=== PATIENT | female | born 1985 | race Native Hawaiian/Other Pacific Islander ===

== ENCOUNTER 2016-08-11 18:21 | Emergency (ER) | payer MEDICAID ==
--- NOTE | 2016-08-22 08:28 | OBPN ---
Datetime: 08/12/2016 19:54 IP Progress Note Comment: Late entry Tracing had been reviewed 08/11/16 1940 hours - baseline 130 bpm; (+) moderate variability; (+) accels; (-) decels - F.S. 77 mg/dL Assessment: 31 yo P2, prev C/S x 2; A1 GDM. NST reactive. F.S. wnl. Clinically stable. Plan: 1) cont to monitor F.S. as instructed 2) NST weekly 3) reviewed S/S labor 4) Keep appointments 5) Discharge home - This was discussed with Dr. Alex Datetime: 08/11/2016 18:52 Contraction Comments Provider: none FHR - Baseline A Provider: 120 Vital Signs Provider: Reviewed NICHD Accel Fetus A IP Provider: 15X15 FHR Category Provider Fetus A: Category I NICHD Variability Prov Fetus A: Moderate 6-25bpm
== END 2016-08-11 20:00 | disposition home or self-care (01) ==
LOC: C.EROB 18:21
DX: O36.5930 Maternal care for other known or suspected poor fetal growth, third trimester, not applicable or unspecified (principal); Z3A.37 37 weeks gestation of pregnancy

== ENCOUNTER 2016-08-22 08:29 | Inpatient (IN) | payer MEDICAID ==
[2016-08-22 09:21] VITALS: BMI 26.5
[2016-08-22 09:37] LABS: HEMATOCRIT 38.8 % (34.0-47.0); MEAN CELL VOLUME 93.6 fL (81.0-99.0); MEAN CORPUSCULAR HEMOGLOBIN 31.9 pg (27.0-31.0); MEAN CORPUSCULAR HGB CONC 34.1 g/dL (33.0-37.0); MEAN PLATELET VOLUME 10.2 fL (7.2-11.7); RED CELL DISTRIBUTION WIDTH 14.3 % (11.5-14.5); WHITE BLOOD COUNT 9.8 K/uL (4.8-10.8)
[2016-08-22 10:04] LABS: URINE BILIRUBIN NEGATIVE (NEGATIVE); URINE BLOOD NEGATIVE (NEGATIVE); URINE COLOR Yellow (YELLOW); URINE GLUCOSE (UA) NORMAL (Normal); URINE KETONE NEGATIVE (NEGATIVE); URINE LEUKOCYTE ESTERASE NEG Leu/uL (Negative); URINE PROTEIN 1+ mg/dL (NEGATIVE); URINE UROBILINOGEN NORMAL mg/dL (0.2-1.0); WBC URINE 3 /hpf (0-5)
[2016-08-22 10:07] LABS: CHLORIDE 102 mmol/L (98-107); POTASSIUM 3.6 mmol/L (3.6-5.2); SODIUM 135 mmol/L (132-148)
[2016-08-22 10:09] LABS: AST/SGOT 17 U/L (14-36); BILIRUBIN,TOTAL 0.9 mg/dL (0.2-1.3); CARBON DIOXIDE 20 mmol/L (22-30); GFR AFRICAN-AMERICAN > 60; TOTAL PROTEIN 6.6 g/dL (6.3-8.3)
[2016-08-22] MEDS ORDERED: cefOXitin IV 2 gm in Dextrose 2 GM/50 ML BAG IVPB ONE ×2 (10:09→11:14)
[2016-08-22] MEDS ORDERED: Sodium Citrate/Citric Acid 15 ml Sol ONE (10:09)
[2016-08-22 10:10] LABS: ALKALINE PHOSPHATASE 118 U/L (38-126); ALT/SGPT 21 U/L (9-52); BLOOD UREA NITROGEN 7 mg/dL (7-17); GLUCOSE,RANDOM 77 mg/dL (65-105)
[2016-08-22] MEDS ORDERED: ePHEDrine 50 mg/ml Inj ONE (10:43)
[2016-08-22] MEDS ORDERED: Phenylephrine 10 mg/ml Inj ONE (10:43)
[2016-08-22] MEDS ORDERED: Morphine 1 mg/ml preservative-free Inj(Duramorph) ONE (10:43)
--- NOTE | 2016-08-22 11:02 | OBHP ---
Datetime: 08/22/2016 08:32 IP Adm Impression: Term, intrauterine ; Active labor IP Adm Impression Other: Previous Section X2 IP Admit Plan: Admit to unit; Initiate Section protocol Admit Comment, IP Provider: with IUP at 39wks presents here today for a repeat Section . 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 Pt of Dr Alex. Pt was GDMA. TOCO- Q 3-5, FHR- Category 1, Cx- 0/0/-3 Assessment: IUP at 39wks Previous Section X2. Plan as per Dr Alex: Admit Patient. NPO Prepare for repeat Delivery. Pelvic Type - PN: Adequate Extremities - PN: Normal Abdomen - PN: Normal Back - PN: Normal Breast - PN: Normal Lungs - PN: Normal Heart - PN: Normal Thyroid - PN: Normal Neurologic - PN: Normal HEENT - PN: Normal General - PN: Normal Presentation-Admit: Vertex FHR - Baseline A Provider: 140 Membranes, Provider: Intact Gestation - Est Wks by US: 39.0 EGA AdmitDate IP: 38.6 IP Chief Complaint: Scheduled Section; Maternal discomfort NICHD Variability Prov Fetus A: Moderate 6-25bpm NICHD Accel Fetus A IP Provider: 15X15 FHR Category Provider Fetus A: Category I NICHD Decel Fetus A IP Provider: None Dilatation, Provider: 0 Effacement, Provider: 0 Station, Provider: -3 Genitourinary Exam: Normal DTRs - PN: Normal Datetime: 08/11/2016 18:52 IP Chief Complaint Other: nst for gdma1 Contraction Comments Provider: none Comments, ACOG Physical Exam: gravid,nontender ext no edema,no calf ten Vital Signs Provider: Reviewed
[2016-08-22] MEDS ORDERED: Sodium Citrate/Citric Acid 15 ml Sol PO ONE (11:14)
[2016-08-22] MEDS ORDERED: Lactated Ringer's 1,000 ML IV SCH (11:15)
[2016-08-22] MEDS ORDERED: DiphenhydrAMINE 50 mg/ml Inj IVP PRN (11:22)
--- NOTE | 2016-08-22 13:15 | OBDS ---
DELIVERY PERSONNEL Delivery Doctor: Erica Staton MD Scrub Nurse: Chelsey Martinez House Registry Rn: Radha Gambino RN Anesthetist: DR VALENZUELA MATERNAL INFORMATION Delivery Anesthesia: Spinal Medications in Delivery: PITOCIN 20UNITS. Estimated Blood Loss (ml): 500 Placenta Cultured: No Maternal Complications: None Provider Comments: 31 yr. old [2012] FOR REPEAT C/S AT 39 WEEKS GESTATION IN LABOR. EDC 08/30/16 . DELIVERED UNDER A SPINAL ANESTHESIA TO A LIVE BABY BOY WITH SCORE 9/9 IN LOP POSITION , BOT H FALLOPIAN TUBES AND OVARIES ARE GROSSLY NORMAL. THE LOWER UTERINE SEGMENTS WERE THIN OUT. URINE NOT ED TO CLEAR AND APPROXIMATELY 200 CC NOTED IN THE HIKNLE BAG. COMPRESSION STOCKING DEVICE USE IN OR A ND IN THE RECOVERY ROOM. EBL 500 CC. LABOR SUMMARY EDC: 08/30/2016 00:00 No. Babies in Womb: 1 Attempted: No Labor Anesthesia: None LABOR INFORMATION Reason for Induction: Not Applicable Oxytocin: N/A Group B Beta Strep: Done, Result Unknown Steroids Given: None Reason Steroids Not Administered: Not Applicable MEMBRANES Rupture of Membranes: 08/22/2016 11:09 Length of Rupture (hrs): 0.00 Amniotic Fluid Color: Clear Amniotic Fluid Amount: Moderate Amniotic Fluid Odor: Normal STAGES OF LABOR Stage 3 hrs: 0 Stage 3 min: 2 VAGINAL DELIVERY Episiotomy: None Laceration Extension: N/A Laceration Type: None Laceration Repair: No Sponge Count Correct: N/A Sharps Count Correct: Yes CSECTION DELIVERY Primary Indication: Repeat Elective Secondary Indication: Repeat Elective CSection Incision: Lower Uterine Transverse BABY A INFORMATION Infant Delivery Date/Time: 08/22/2016 11:09 Method of Delivery: Born in Route : No : N/A Forceps: N/A Vacuum Extraction: N/A Shoulder Dystocia : No SHOULDER DYSTOCIA BABY A Delivery Date/Time: 08/22/2016 11:09 PRESENTATION/POSITION BABY A Presentation: Cephalic Cephalic Presentation: Vertex Breech Presentation: N/A PLACENTA INFORMATION BABY A Placenta Delivery Time : 08/22/2016 11:11 Placenta Method of Delivery: Manual Removal Placenta Status: Delivered SCORES BABY A Heart Rate 1 min: >100 bpm Resp Effort 1 min: Good Cry Reflex Irritability 1 min: Cough or Sneeze or Pulls Away Muscle Tone 1 min: Active Motion Color 1 min: Body [place], Extremities Blue SCORE 1 MIN: 9 Heart Rate 5 min: >100 bpm Resp Effort 5 min: Good Cry Reflex Irritability 5 min: Cough or Sneeze or Pulls Away Muscle Tone 5 min: Active Motion Color 5 min: Body [place], Extremities Blue SCORE 5 MIN: 9 INFORMATION BABY A Gestational Age at Delivery: 39.0 Gestational Status: Term Infant Outcome : Liveborn Condition : Stable Sex: Male IDENTIFICATION/MEDS BABY A ID Band Location: Left Leg; Left Arm Sensor Applied: Yes Sensor Location : Cord Clamp Vitamin K Given : Not Given Erythromycin Given: Not Given WEIGHT/LENGTH BABY A Infant Birthweight (gms): 3530 Infant Weight (lb): 7 Weight (oz): 12 Length Inches: 19.50 Length cms: 49.5 CORD INFORMATION BABY A No. Cord Vessels: 3 Nuchal Cord : N/A Nuchal Cord Other: N/A True Knot: 0 Cord Blood Taken: Yes ASSESSMENT BABY A Complications: None Physical Findings at Delivery: Within Normal Limits Respirations: Appears Normal Care By: ALDEN VENTURA/DR SANTOS. Transferred To: [facility]
[2016-08-22] MEDS ORDERED: cefOXitin IV 2 gm in Dextrose 2 GM/50 ML BAG IVPB SCH (13:30)
--- NOTE | 2016-08-22 14:05 | OP ---
PROCEDURE DATE: 08/22/2016 PREOPERATIVE DIAGNOSES: , intrauterine, term, previous section, third time and in labor. POSTOPERATIVE DIAGNOSES: , intrauterine, term, previous section, third time and in labor. PROCEDURE PERFORMED: Repeat low transverse section. ANESTHESIOLOGIST: Dr. Reardon ANESTHESIA: Spinal. SURGEON: Dr. Flores Alex TRAFFIC RECORDER: Dr. Andrade OPERATIVE FINDINGS: The uterus was enlarged to term size gestation. The baby was at LOP position. Both fallopian tubes and ovaries are grossly normal. The lower uterine segment of the uterus was thi nned out and like paper thin like and showing signs of labor, adequate amniotic fluid. OPERATIVE TECHNIQUE: The patient was prepped and draped in the usual sterile manner under spinal ane sthesia. A Pfannenstiel skin incision was made through the previous surgical scar. Incision was fur ther incised into the subcutaneous layer. Fascia was cut in the usual manner. Muscle splitting was performed and the peritoneum was picked up and opened, thereby exposing the abdominal contents. The lower uterine segment of the uterus was identified and was noted to be very thinned out and a low tra nsverse section was performed delivering a live baby boy with score of 9 and 10 from a left occiput posterior position. Cord blood was obtained as well as the placenta was then removed m anually after establishing hemostasis and the uterus was explored and pulled up from the abdominal ca vity and put on top of the abdomen and was sutured. The lower uterine segment of uterus was repaired in 2 layers by using 0 chromic catgut sutures. The first layer was a continuous interlocking suture . The second layer was a continuous imbricating layer for hemostatic purposes. After establishing h emostasis, the lower uterine segment of uterus was repaired and the bladder flap was resutured by usi ng 2-0 chromic gut sutures. After establishing hemostasis, the abdominal cavity was irrigated with R aydin's lactated solution. After the lap and sponge counts were announced to be correct, the abdomin al cavity was closed in the following manner. Peritoneum was closed by using an 0 chromic catgut usi ng continuous sutures. The abdominal muscles were reapproximated by using an 0 chromic catgut using interrupted sutures and a piece of Interceed was applied over the lower uterine segment of the uterus to avoid further adhesions in the future. The Surgicel was applied over the posterior fascial layer for hemostatic purposes after all the bleeders were controlled by using an 0 chromic catgut interrup amirah sutures. The fascial layer was closed by using an 0 chromic catgut using continuous sutures and interrupted sutures in between the stitches and the subcutaneous layer was closed by using a 2-0 plai n catgut using continuous sutures and the skin was reapproximated by the use of 4-0 Monocryl sutures using subcuticular stitches. The patient was transferred to recovery room in stable condition. The estimated blood loss was 500 mL and the urine was noted to be clear and approximately 300 mL in the F oley bag and the thromboelastic stockings were in place in the operating room as well as in the recov con room with a continuous compression device on. The patient was transferred to recovery room in st able condition. Flores Alex MD cc: [id number] TT: 08/22/2016 14:05:35 en
[2016-08-22 16:57] LABS: HEMATOCRIT 36.2 % (34.0-47.0); MEAN CELL VOLUME 94.8 fL (81.0-99.0); MEAN CORPUSCULAR HEMOGLOBIN 31.8 pg (27.0-31.0); MEAN CORPUSCULAR HGB CONC 33.6 g/dL (33.0-37.0); WHITE BLOOD COUNT 14.3 K/uL (4.8-10.8)
[2016-08-22] MEDS: cefOXitin IV 2 gm in Dextrose 2 GM/50 ML BAG IVPB SCH (18:19)
[2016-08-23] MEDS: cefOXitin IV 2 gm in Dextrose 2 GM/50 ML BAG IVPB SCH ×2 (03:05→09:37)
[2016-08-23] MEDS: Oxycodone/Acetaminophen 5/325 mg Tab PO PRN (12:44)
[2016-08-23 13:25] LABS: BASO % 0.2 % (0.0-2.0); EOS % 0.2 % (0.0-4.0); LYMPH # 1.2 K/uL (1.0-4.3); MEAN CELL VOLUME 94.5 fL (81.0-99.0); MEAN CORPUSCULAR HEMOGLOBIN 31.7 pg (27.0-31.0); MEAN CORPUSCULAR HGB CONC 33.5 g/dL (33.0-37.0); MEAN PLATELET VOLUME 9.5 fL (7.2-11.7); MONO # 0.7 K/uL (0.0-0.8); MONO % 4.3 % (0.0-10.0); PLATELET COUNT 169 K/uL (130-400); RED CELL DISTRIBUTION WIDTH 14.4 % (11.5-14.5); WHITE BLOOD COUNT 15.3 K/uL (4.8-10.8)
[2016-08-23 14:01] LABS: NEUTROPHIL 74 % (50-75); TOTAL CELLS COUNTED 100
--- NOTE | 2016-08-23 21:14 | OBPPN ---
Datetime: 08/23/2016 21:05 PP Pain Prov: Within normal limits PP Nausea Prov: Denies PP Flatus Prov: Yes PP BM Prov: No PP Breasts Prov: Normal PP Heart Prov: Normal PP Lungs Prov: Normal PP Abdomen/Uterus Prov: Normal PP Lochia Prov: Normal PP Vulva/Perineum Prov: Normal PP CVA Tenderness Prov: Normal PP Extremities Prov: Normal PP Progress Prov: Normal PP Impression Prov: Normal progression PP Plan Prov: Continue present management PP Progress Note Prov: 1S POSTOP DAY 3 1 afebrile, ambulatory, breasts are soft, abdomen is soft, d ressing off , wound open to air, wound well coaptated, sterile strips in place, extremities no edema, no tenderness , lochia minimal. no bm yet. IP PP Procedures: None Vital Signs Provider PP: Reviewed; Within Normal Limits
[2016-08-24] MEDS: Oxycodone/Acetaminophen 5/325 mg Tab PO PRN (08:06)
[2016-08-24 17:43] LABS: BASO % 0.2 % (0.0-2.0); EOS # 0.2 K/uL (0.0-0.7); EOS % 1.3 % (0.0-4.0); HEMATOCRIT 32.2 % (34.0-47.0); LYMPH # 1.5 K/uL (1.0-4.3); LYMPH % 11.4 % (20.0-40.0); MEAN CELL VOLUME 96.1 fL (81.0-99.0); MEAN CORPUSCULAR HGB CONC 33.3 g/dL (33.0-37.0); MEAN PLATELET VOLUME 9.2 fL (7.2-11.7); MONO # 0.5 K/uL (0.0-0.8); MONO % 3.8 % (0.0-10.0); RED CELL DISTRIBUTION WIDTH 14.4 % (11.5-14.5); WHITE BLOOD COUNT 13.2 K/uL (4.8-10.8)
--- NOTE | 2016-08-24 20:03 | OBPPN ---
Datetime: 08/24/2016 19:50 PP Pain Prov: Within normal limits PP Nausea Prov: Denies PP Flatus Prov: Yes PP BM Prov: Yes PP Breasts Prov: Normal PP Heart Prov: Normal PP Lungs Prov: Normal PP Abdomen/Uterus Prov: Normal PP Lochia Prov: Normal PP Vulva/Perineum Prov: Normal PP CVA Tenderness Prov: Normal PP Extremities Prov: Normal PP Progress Prov: Normal PP Impression Prov: Normal progression PP Plan Prov: Continue present management PP Progress Note Prov: 2nd post op day : AFEBRILE, AMBULATORY, BREASTSARE SOFT, ABDOMEN IS SOFT, GUSTAVO RILE STRIPS IN PLACE. WOUND WELL COAPTATED, EXTREMITIES : NO EDEMA, NO TENDERNESS, LOCHIA MINIMAL. JOHNSON D BM TODAY, FEELS DIZZY AND BP WAS 140/90 , RECHECK AFTER 3 HRS WAS 130/86. ADVISED TO AVOID SALTY FO ODS. FOR DISCHARGED HOME IN AM. WITH PRESCRITIONS WRITTEN FOR PAINS, MOTRIN 600 MG 1 TAB Q 6 HRS PRN FOR PAINS, AND PERCOCET 2TABS Q 4 HRS FOR SEVERE PAINS, ANTIBIOTICS, KEFLEX 500MG 1 CAPSULE QID FOR 7 DAYS., DULCOLAX TABS 2 TABS PRN FOR BOWEL MOVEMENTS. IP PP Procedures: None Vital Signs Provider PP: Reviewed; Within Normal Limits
--- NOTE | 2016-08-24 20:07 | OBDCSUM ---
Datetime: 08/11/2016 20:00 Discharged to, Provider: Home Discharge Instructions, Provider: Routine instructions given Discharge Diagnosis, Provider: Term Delivered Discharge Time: 08/25/2016 11:00 Contraception discussed, Prov: Yes Disch Activity Restrictions: No sexual activity; Nothing in vagina - [place], tampons, douche Discharge Comment, Provider: DISCHARGED HOME IN AM, EITH PRESCRIPTIONS FOR PAINS , ANTIBIOTICS, AND LAXATIVES PRN. TO THE OFFICE IB 2 WEEKS FOR CHECKUP. CONTINUE VITAMINS.
--- NOTE | 2016-08-24 20:21 | OBDCSUM ---
Datetime: 08/24/2016 20:07 Discharged to, Provider: Home Follow up at, Provider: dr. jazmine pepe Disch Instr Activity: Normal activity Disch Instr Diet: Regular Discharge Instructions, Provider: Routine instructions given Discharge Diagnosis, Provider: Term Delivered Discharge Time: 08/25/2016 11:11 Follow up in weeks, Provider: 2 WEEKS Disch Referrals: None Contraception discussed, Prov: Yes Disch Activity Restrictions: Minimize walking; Minimize stair-climbing; No sexual activity; Nothing in vagina - [place], tampons, douche Discharge Comment, Provider: DISCHARGED HOME IN AM, WITH PRESCRIPTIONS FOR PAINS, ANTIBIOTICS AND A ND LAXATIVES TO THE OFFICE FOR CHECKUP IN 2 WEEKS. Datetime: 08/11/2016 20:00 Discharged to, Provider: Home Discharge Instructions, Provider: Routine instructions given Discharge Diagnosis, Provider: Term Delivered Discharge Time: 08/25/2016 11:00 Contraception discussed, Prov: Yes Disch Activity Restrictions: No sexual activity; Nothing in vagina - [place], tampons, douche Discharge Comment, Provider: DISCHARGED HOME IN AM, EITH PRESCRIPTIONS FOR PAINS , ANTIBIOTICS, AND LAXATIVES PRN. TO THE OFFICE IB 2 WEEKS FOR CHECKUP. CONTINUE VITAMINS.
[2016-08-25 08:06] VITALS: BP 139/92; PULSE 99; RESP 20; TEMP 97.8; O2SAT 100
--- NOTE | 2016-09-24 11:13 | OBADHP ---
Datetime: 08/22/2016 08:32 IP Adm Impression Other: Previous Section X2 Admit Comment, IP Provider: with IUP at 39wks presents here today for a repeat Section . 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 Pt of Dr Alex. Pt was GDMA. TOCO- Q 3-5, FHR- Category 1, Cx- 0/0/-3 Assessment: IUP at 39wks Previous Section X2. Plan as per Dr Alex: Admit Patient. NPO Prepare for repeat Delivery. Pelvic Type - PN: Adequate Extremities - PN: Normal Abdomen - PN: Normal Back - PN: Normal Breast - PN: Normal Lungs - PN: Normal Heart - PN: Normal Thyroid - PN: Normal Neurologic - PN: Normal HEENT - PN: Normal General - PN: Normal Presentation-Admit: Vertex FHR - Baseline A Provider: 140 Membranes, Provider: Intact Gestation - Est Wks by US: 39.0 Vital Signs Provider: Reviewed; Within Normal Limits IP Chief Complaint: Scheduled Section; Maternal discomfort NICHD Variability Prov Fetus A: Moderate 6-25bpm NICHD Accel Fetus A IP Provider: 15X15 FHR Category Provider Fetus A: Category I NICHD Decel Fetus A IP Provider: None Dilatation, Provider: 0 Effacement, Provider: 0 Station, Provider: -3 Genitourinary Exam: Normal DTRs - PN: Normal EGA AdmitDate IP: 38.6 IP Adm Impression: Term, intrauterine ; Active labor IP Admit Plan: Admit to unit; Initiate Section protocol Datetime: 08/11/2016 18:52 IP Chief Complaint Other: nst for gdma1 Contraction Comments Provider: none Comments, ACOG Physical Exam: gravid,nontender ext no edema,no calf ten
== END 2016-08-25 16:00 | disposition home or self-care (01) | DRG 371 ==
LOC: C.EROB 08:29 → C.4D 08:34 → C.4M 17:15
PROVIDERS: ADMIT Obstetrics & Gynecology; ATTEND Obstetrics & Gynecology
PROC: 10D00Z1 Extraction of Products of Conception, Low, Open Approach (ICD-10-PCS; principal; 2016-08-22)
DX: O34.211 Maternal care for low transverse scar from previous cesarean delivery (principal); O24.429 Gestational diabetes mellitus in childbirth, unspecified control; Z37.0 Single live birth; Z3A.39 39 weeks gestation of pregnancy